=== PATIENT | female | born 1975 ===

== ENCOUNTER 2017-09-14 07:42 | Observation (INO) | payer BC ==
[2017-09-14 07:48] VITALS: BMI 19.3
[2017-09-14] MEDS ORDERED: ePHEDrine 50 mg/ml Inj ONE (08:03)
[2017-09-14] MEDS ORDERED: Propofol 10 mg/ml Inj (20 ML) ONE (08:03)
[2017-09-14] MEDS ORDERED: Succinylcholine 200 mg/10 ml Inj IV ONE (08:05)
[2017-09-14] MEDS ORDERED: Rocuronium 10 mg/ml (5 ml) ONE ×2 (08:05→12:47)
[2017-09-14] MEDS ORDERED: Phenylephrine 10 mg/ml Inj ONE (08:06)
[2017-09-14] MEDS ORDERED: Neostigmine Methylsulfate 3mg/3ml Syringe IV ONE (08:21)
[2017-09-14] MEDS ORDERED: Neostigmine Methylsulfate 2 MG/2 ML ML IV ONE (08:21)
[2017-09-14] MEDS ORDERED: ceFAZolin IV 1 gm in Dextrose 2 GM/100 ML BAG IVPB ONE (08:49)
[2017-09-14] MEDS ORDERED: SULFANILAMIDE (AVC) VAG CREAM VG ONE ×2 (08:49→13:25)
[2017-09-14] MEDS ORDERED: Bupivacaine 0.5% Inj(30mL) ONE (08:49)
[2017-09-14] MEDS ORDERED: Lactated Ringer's 1,000 ML IV ONE ×4 (09:00→11:55)
[2017-09-14] MEDS ORDERED: Midazolam 2 MG/2 ML VIAL ONE (09:50)
[2017-09-14] MEDS ORDERED: Dexamethasone 4 mg/1 ml ONE (10:36)
[2017-09-14] MEDS ORDERED: Vasopressin 20 Units/ml Inj IV ONE (11:10)
[2017-09-14] MEDS ORDERED: HEMOSTATIC MATRIX 10 ML DIS.NEEDLE TOP ONE (11:19)
[2017-09-14] MEDS ORDERED: Sevoflurane - Inhalation Anesthetic Liq (250 ml) ONE (12:22)
[2017-09-14] MEDS ORDERED: Methylene Blue 10 mg/ml (1ml) Inj IV ONE (13:43)
[2017-09-14] MEDS ORDERED: Oxycodone/Acetaminophen 5/325 mg Tab PO PRN (14:20)
[2017-09-14] MEDS ORDERED: Naloxone 0.4 mg/ml Inj (Adult) IVP PRN (14:40)
[2017-09-14] MEDS: cefOXitin IV 1 gm in Dextrose 1 GM/50 ML BAG IVPB SCH ×3 (15:52→16:00)
[2017-09-14] MEDS: Lactated Ringer's 1,000 ML IV SCH (19:04)
[2017-09-14 22:48] VITALS: O2SAT 100
[2017-09-15] MEDS: cefOXitin IV 1 gm in Dextrose 1 GM/50 ML BAG IVPB SCH ×2 (00:15→08:08)
[2017-09-15] MEDS: Lactated Ringer's 1,000 ML IV SCH ×2 (03:12→12:17)
[2017-09-15 05:51] LABS: HEMATOCRIT 33.5 % (34.0-47.0); MEAN CELL VOLUME 80.3 fl (81.0-99.0); MEAN CORPUSCULAR HEMOGLOBIN 26.2 pg (27.0-31.0); MEAN CORPUSCULAR HGB CONC 32.6 g/dL (33.0-37.0); RED CELL DISTRIBUTION WIDTH 16.7 % (11.5-14.5); WHITE BLOOD COUNT 10.8 K/uL (4.8-10.8)
[2017-09-15 06:14] LABS: BLOOD UREA NITROGEN 8 mg/dl (7-17); CALCIUM 8.1 mg/dL (8.4-10.2); CARBON DIOXIDE 24 mmol/L (22-30); CHLORIDE 106 mmol/L (98-107); GFR AFRICAN-AMERICAN > 60; GLUCOSE,RANDOM 128 mg/dL (65-105); SODIUM 137 mmol/l (132-148)
--- NOTE | 2017-09-15 08:23 | OP ---
PROCEDURE DATE: 09/14/2017 PREOPERATIVE DIAGNOSIS: A 42-year-old female with symptomatic uterine leiomyomas as well as chronic pelvic pain, menorrhagia, irregular menstrual period, failure of medical and surgical therapy. POSTOPERATIVE DIAGNOSIS: A 42-year-old female with symptomatic uterine leiomyomas as well as chronic pelvic pain menorrhagia, irregular menstrual period, failure of medical and surgical therapy. PROCEDURE: Robotic total hysterectomy, bilateral salpingectomy as well as cystoscopy. SURGEON: Pat Saravia MD DECORATING CONSULTANT: Dr. Young. TYPE OF ANESTHESIA: General. ESTIMATED BLOOD LOSS: Approximately 300 mL. URINE OUTPUT: 800 mL. IV FLUIDS: 2800 mL. COMPLICATIONS: None. INDICATIONS: The patient was informed of the risks, benefits and alternatives of the procedure. Risks including infection, bleeding, damage to surrounding organs, tissue, complication from anesthesia, as well as possible fistula formation and damage to the ureters, as well as possible . All questions were answered prior to taken to the consent form. The patient understood all the risk factors of robotic hysterectomy. DESCRIPTION OF PROCEDURE: Once the consent was obtained, she was then taken to the operating room and administered general anesthesia which was found to be adequate. She was then placed in a dorsal lithotomy position, prepped and draped in a normal sterile fashion. In that particular time, a Garland catheter was placed into the vagina. A weighted speculum was placed in the vagina and the anterior lip of the cervix was grasped with single-tooth tenaculum. The uterus was then gently sounded to approximately 11 cm and that particular, a medium size VCare device was then utilized in order to manipulate the uterine cavity. Once that was done, the weighted speculum was then removed from the vagina and single-tooth tenaculum was removed. Attention was then turned to the abdomen. A horizontal supraumbilical incision was made with a scalpel and a Veress needle was placed into the abdominal cavity. Through the Veress needle, carbon dioxide was infused until pneumoperitoneum was obtained. The Veress needle was then removed and the supraumbilical incision was extended. A 8 mm trocar and sleeve was then placed into the abdominal cavity without any difficulty. The trocar was removed and the robotic laparoscope was placed in the abdominal cavity. In that particular incident, it was noted that the uterus was found to be diffusely enlarged with multiple leiomyomas, one was noted to be at the fundus which was like 15 cm, another one was on the right side close to the right round ligament which was approximately 5 cm. In that particular incident, local anesthesia was then insufflated at the sites of all the ports prior to placement for the surgical port. Two 8 mm surgical ports were then placed just inferior to the umbilicus and lateral to the rectus abdominis muscle bilateral. These ports were then put to the abdominal cavity under direct visualization. The housekeeper and laundry assistant port was then placed just beneath the ribs in the left upper quadrant of the abdomen. The da Aliya robot was then placed with the surgical port and the left arm was placed plasma kinetic device and the right with hot scissors. Due to the fact that there was a very large leiomyoma, caution was taken. So, when proceeding, we gave vasopressin which was 20 mixed with 50 mL which was given at the large leiomyoma which was found to be on the umbilicus, and then the PK device was utilized and the round ligament on the left was cauterized and cut, and the left side of the vesico-vaginal peritoneum was then incised, forming the left side of the bladder flap. The left uterine vascularization was then isolated and cauterized. The right ovary appeared to be within normal limits, so it would be okay to leave it in. So, the same was performed on the right side. The utero-ovarian ligament was cauterized with the PK and then cut. In that particular instance, the bladder was then pushed down off the lower uterine segment without any difficulty. Uterine vascularization on the right was then cauterized. The ring was identified anteriorly and anterior colpotomy was performed. The uterine vascularization was cauterized bilaterally as the colpotomy was extended. After completely circumferential, the scissors from the vaginal cuff, the uterus and the left adnexa, the cuff was then basically cut with scissors. In that particular instance, it was time to deliver the uterus from the vagina which was delivered. The vaginal cuff was then closed with running V-Loc sutures but prior to closing the vaginal cuff with V-Loc sutures, the right and the left tube was cauterized with a PK and cut with the endo scissors. Excellent hemostasis was noted. It was delivered to the vagina. Then, the cuff was cauterized using the V-Loc. The pelvis was then irrigated with 0.25% amount of normal saline and hemostasis was found to be secured. In that particular instant, cystoscopy was performed. Actually, attention was then placed and a cysto was performed. Both ureteral orifices were identified. There was noted to be blue dye from both ureteral orifices, there was no injury noted to the ureter versus the bladder, and then the Garland was reintroduced. Then, attention again was turned to the abdomen where all the surgical ports were removed and the incision was closed using 4-0 Monocryl. All sponges, needles, and instrument counts were correct x2. The urine in the Garland bag was noted to be clear and blue. The patient tolerated the procedure well and was sent to the recovery room in stable condition. Pat Saravia MD
[2017-09-15 09:06] VITALS: RESP 20
[2017-09-15 13:33] VITALS: PULSE 65
[2017-09-15 16:05] VITALS: BP 116/54; TEMP 98.5
--- NOTE | 2017-09-15 16:50 | CP.PCM.PN ---
Subjective - Date & Time of Evaluation Date of Evaluation: 09/15/17 Time of Evaluation: 16:48 - Subjective Subjective: Pt without complaints. Pain well controlled. Tolerating solids. Voiding without problems. Ambulating well. Objective - Vital Signs/Intake and Output Vital Signs (last 24 hours): Temp Pulse Resp BP Pulse Ox 98.5 F 65 20 116/54 L 100 09/15/17 16:03 09/15/17 16:03 09/15/17 16:03 09/15/17 16:03 09/15/17 16:03 Intake and Output: 09/15/17 09/15/17 06:59 18:59 Intake Total 2360 Output Total 1845 850 Balance 515 -850 - Medications Medications: Current Medications Lactated Ringer's (Lactated Ringer's) 1,000 mls @ 125 mls/hr IV .Q8H RAMESH Last Admin: 09/15/17 12:17 Dose: 125 mls/hr Naloxone HCl (Narcan) 0.1 mg IVP Q2M PRN PRN Reason: Shortness of Breath Ondansetron HCl (Zofran Inj) 4 mg IVP Q8 PRN PRN Reason: Nausea/Vomiting Oxycodone/Acetaminophen (Percocet 5/325 Mg Tab) 1 tab PO Q4 PRN PRN Reason: Pain, Mild (1-3) Stop: 09/17/17 14:21 Last Admin: 09/15/17 14:18 Dose: 1 tab - Labs Labs: 09/15/17 05:00 09/15/17 05:00 - Constitutional Appears: Well, No Acute Distress - ENT Exam ENT Exam: Mucous Membranes Moist - Neck Exam Neck Exam: Full ROM - GI/Abdominal Exam GI & Abdominal Exam: Soft. absent: Distended, Tenderness Additional comments: Port sites C/D/I - Exam Additional comments: vaginal packing removed - Extremities Exam Extremities Exam: Normal Inspection. absent: Calf Tenderness Assessment and Plan - Assessment and Plan (Free Text) Assessment: POD#1 s/p robotic asst hysterectomy -- recovering well Plan: D/C home with postop instructions F/U with PMD 1 wk All patient questions answered
== END 2017-09-15 18:47 | disposition home or self-care (01) ==
LOC: H.OPSURG 07:42 → H.ERHOLD 14:20 → H.PEDS 16:31
PROVIDERS: ADMIT Obstetrics & Gynecology; ATTEND Obstetrics & Gynecology
DX: D25.9 Leiomyoma of uterus, unspecified (principal); N92.0 Excessive and frequent menstruation with regular cycle; N92.6 Irregular menstruation, unspecified; G89.29 Other chronic pain
CPT/HCPCS: 36415; 58571; 80048; 85027; 86850; 86900; 88305; 96365; C2615; G0378; J0330; J0690; J0694; J1100; J1170; J2001; J2250; J2370; J2405; J2704; J2710; J3010; J7030; J7120; Q9968